=== PATIENT | male | born 1945 | race Caucasian/White ===

== ENCOUNTER → 2019-04-21 | Outpatient (CLI) | payer BC ==
--- NOTE | 2019-04-21 11:37 | PCVCIMAG ---
APPROVED REPORT Study performed: 04/21/2019 09:40:25 EXAM: Comprehensive 2D, Doppler, and color-flow Echocardiogram Patient Location: Echo lab Room #: 2Status: routine BSA: 2.08 HR: 115 bpmBP: 148/76 mmHg Rhythm: Atrial Fibrillation Other Information Study Quality: Adequate Indications Atrial Fibrillation 2D Dimensions IVSd: 14.36 (7-11mm)LVOT Diam: 21.42 (18-24mm) LVDd: 44.50 mm PWd: 12.98 (7-11mm)Ascending Ao: 43.95 (22-36mm) LVDs: 28.03 (25-40mm) Left Atrium: 39.93 (27-40mm) Aortic Root: 39.47 mm LV Single Plane 4CH: 51.44 % LV Single Plane 2CH: 60.51 % Biplane EF: 55.8 % Volumes Left Atrial Volume (Systole) Single Plane 4CH: 70.80 mLSingle Plane 2CH: 63.77 mL Biplane LA Volume: 74.00 mLLA ESV Index: 36.00 mL/m2 Aortic Valve AoV Peak Zack.: 1.11 m/s AO Peak Gr.: 6.80 mmHg Mitral Valve MV E Max Zack.: 0.74 m/s MV PHT: 25.06 ms MVA (PHT): 8.78 cm2 TDI E/Lateral E': 5.29E/Medial E': 5.29 Medial E' Zack.: 0.14 m/s Lateral E' Zack.: 0.14 m/s Pulmonary Valve PV Peak Zack.: 0.95 m/sPV Peak Gr.: 3.61 mmHg Tricuspid Valve TR Peak Zack.: 2.17 m/s TR Peak Gr.: 18.84 mmHg TV Vmax: 0.65 m/sPA Pressure: 26.00 mmHg Left Ventricle The left ventricle is normal size. There is normal LV segmental wall motion. Mild concentric left ventricular hypertrophy. Left ventricular systolic function is normal. The left ventricular ejection fraction is within the normal range. LVEF is 55-60%. This study is not technically sufficient to allow evaluation of the LV diastolic function due to atrial fibrillation. Right Ventricle The right ventricle is normal size. The right ventricular systolic function is normal. Atria Left atrium is borderline dilated. The right atrium size is normal. Aortic Valve Aortic valve is trileaflet. The aortic valve is normal in structure and function. Trace aortic regurgitation. There is no aortic valvular stenosis. Mitral Valve The mitral valve is normal in structure. There is no mitral valve regurgitation noted. No evidence of mitral valve stenosis. Tricuspid Valve The tricuspid valve is normal in structure. Trace tricuspid regurgitation. Pulmonic Valve The pulmonary valve is normal in structure. Trace pulmonic regurgitation. Great Vessels The aortic root is normal in size. The ascending aorta is moderately dilated. Aortic arch is dilated. IVC is normal in size and collapses >50% with inspiration. Pericardium There is no pericardial effusion. There is no pleural effusion. <Conclusion> The left ventricle is normal size. LVEF is 55-60%. Left atrium is borderline dilated. Aortic valve is trileaflet. The aortic valve is normal in structure and function. Trace aortic regurgitation. The mitral valve is normal in structure. The tricuspid valve is normal in structure. Trace tricuspid regurgitation. The pulmonary valve is normal in structure. Trace pulmonic regurgitation. The ascending aorta is moderately dilated. Aortic arch is dilated. There is no pericardial effusion.
== END | disposition home or self-care (01) ==
LOC: PCVCIMAG 09:21
PROVIDERS: ATTEND Internal Medicine
DX: I48.0 Paroxysmal atrial fibrillation (principal); Z88.8 Allergy status to other drugs, medicaments and biological substances
CPT/HCPCS: 93306